=== PATIENT | male | born 1965 | race African-American/Black ===

== ENCOUNTER → 2020-06-19 | Outpatient (CLI) | payer MEDICAID ==
[~2020-06-19] MED LIST: BENZ1TAB7 PO; LITHBID PO; TRAZ-252 PO; [UNRECOGNIZED DRUG - CODE] PO; albuterol INH
== END | disposition home or self-care (01) ==
LOC: LAB 08:42
PROVIDERS: ATTEND Internal Medicine Gastroenterology
DX: Z01.812 Encounter for preprocedural laboratory examination (principal); Z20.828 Contact with and (suspected) exposure to other viral communicable diseases
CPT/HCPCS: C9803; U0003

== ENCOUNTER 2020-06-22 07:30 | Day surgery (SDC) | payer MEDICAID ==
[~2020-06-22] VITALS: Ht 180.3 cm; Wt 117.9 kg
[2020-06-22] MEDS: LACTATED RINGERS 1,000 ML IV SCH (09:38)
[2020-06-22] MEDS ORDERED: LIDOCAINE HCL/PF 1% 10 MG/ML 5ML VIAL ONE (11:11)
[2020-06-22] MEDS ORDERED: PROPOFOL 200MG/20ML VIAL IV ONE ×2 (11:11→12:13)
[2020-06-22] MEDS ORDERED: MIDAZOLAM HCL 2 MG/2 ML VIAL ONE (11:11)
[2020-06-22] MEDS ORDERED: SIMETHICONE 40 MG/0.6 ML 30ML ONE (11:27)
[2020-06-22] MEDS ORDERED: MIDAZOLAM HCL 5 MG/5 ML VIAL ONE (11:29)
== END 2020-06-22 14:00 | disposition home or self-care (01) ==
LOC: OR 07:30
PROVIDERS: ATTEND Internal Medicine Gastroenterology
DX: Z12.11 Encounter for screening for malignant neoplasm of colon (principal); K63.89 Other specified diseases of intestine; J44.9 Chronic obstructive pulmonary disease, unspecified; E66.9 Obesity, unspecified; F17.210 Nicotine dependence, cigarettes, uncomplicated; Z79.899 Other long term (current) drug therapy; Z98.890 Other specified postprocedural states; Z72.89 Other problems related to lifestyle
CPT/HCPCS: J2250; J2704; J3490